=== PATIENT | female | born 1995 | race Two or more races ===

== ENCOUNTER 2019-01-01 08:24 | Emergency (ER) | payer MEDICAID ==
[~2019-01-01] VITALS: Ht 160 cm; Wt 58.0 kg
[~2019-01-01 08:24] MED LIST: CEFD300C37 PO; CHLO25TA4 PO; DOXY25TA18 PO; GING500C PO; OMEP10CA5 PO; ONDA4TAB7 PO; PROM25TA10 PO
[2019-01-01] MEDS ORDERED: RACEPINEPHRINE INH 2.25%, 0.5ML ONE (08:40)
--- NOTE | 2019-01-01 09:08 | NUR ---
PT IS 21 WEEKS WITH HYPEREMESIS. HAS BEEN TAKING DOXYLAMINE-PYRIDOXINE TO GOOD EFFECT. INSURANCE DENIED PAYMENT FOR HER REFILL OF MEDICATION. PT WAS TOLD TO TRY 2 OTC MEDICATIONS TOGETHER THAT HAVE THE SAME EFFECT, BUT PT SAYS ITS NOT WORKING. ACTIVELY VOMITING IN ROOM AT THIS TIME. HAS BEEN VOMITING SINCE MEDICATION CHANGE SUNDAY, UNABLE TO HOLD DOWN FOOD. PT C/O MILD EPIGASTRIC PAIN, AND LOWER ABDOMINAL PAIN FROM VOMITING AND MUSCLE STRAIN. DENIES ANY OTHER CONCERNS. CALL LIGHT IN REACH.
[2019-01-01] MEDS ORDERED: FAMOTIDINE 20 MG/2 ML IVPush ONE (09:30)
[2019-01-01] MEDS ORDERED: METOCLOPRAMIDE 5 MG/ML, 2ML IVPush ONE (09:30)
[2019-01-01] MEDS ORDERED: SODIUM CHLORIDE 0.9% 1,000ML IVBOLUS ONE (09:30)
[2019-01-01] MEDS ORDERED: SODIUM CHLORIDE FLUSH 10ML SYR IVF ONE (09:30)
[2019-01-01] MEDS ORDERED: DIPHENHYDRAMINE 50 MG/ML, 1ML ONE (09:40)
[2019-01-01] MEDS ORDERED: FAMOTIDINE 20 MG/2 ML ONE (09:40)
[2019-01-01] MEDS ORDERED: METOCLOPRAMIDE 5 MG/ML, 2ML ONE (09:40)
[2019-01-01 09:49] VITALS: BP 102/64
[2019-01-01 09:53] LABS: BASOPHILS # (AUTO) 0.02 x10^3/uL (0-0.1); BASOPHILS % (AUTO) 0 % (0-1); EOSINOPHILS # (AUTO) 0.02 x10^3/uL (0-0.4); EOSINOPHILS % (AUTO) 0 % (1-7); LYMPHOCYTES # (AUTO) 1.37 x10^3/uL (1-3.4); LYMPHOCYTES % (AUTO) 13 % (22-44); MD NO; MEAN CORPUSCULAR HEMOGLOBIN 29.6 pg (27.0-34.8); MEAN CORPUSCULAR HGB CONC 32.7 g/dL (32.4-35.8); MEAN CORPUSCULAR VOLUME 90.4 fL (80-100); MEAN PLATELET VOLUME 7.3 fL (7.4-10.4); MONOCYTES # (AUTO) 0.58 x10^3/uL (0.2-0.8); MONOCYTES % (AUTO) 5 % (2-9); NEUTROPHILS # (AUTO) 8.81 x10^3/uL (1.8-6.8); NEUTROPHILS % (AUTO) 82 % (42-75); PLATELET COUNT 495 x10^3/uL (130-400); RED BLOOD COUNT 4.16 x10^6/uL (3.82-5.3); RED CELL DISTRIBUTION WIDTH 14.1 % (9.6-15.2)
[2019-01-01] MEDS ORDERED: DIPHENHYDRAMINE 50 MG/ML, 1ML IVPush ONE (10:00)
[2019-01-01 10:04] LABS: ALBUMIN 3.4 g/dL (3.4-5.0); ANION GAP 7 mmol/L (5-15); CALCIUM 9.4 mg/dL (8.5-10.1); CHLORIDE 107 mmol/L (98-107)
[2019-01-01 10:07] LABS: ALANINE AMINOTRANSFERASE 20 U/L (12-78); ALKALINE PHOSPHATASE 72 U/L (45-117); BILIRUBIN,TOTAL 0.6 mg/dL (0.2-1.0); CREATININE 0.62 mg/dL (0.55-1.02)
[2019-01-01] MEDS ORDERED: POTASSIUM CHLORIDE 20 MEQ PACKET PO ONE (10:30)
== END 2019-01-01 11:33 | disposition home or self-care (01) ==
LOC: ED 10:28
DX: O21.2 Late vomiting of pregnancy (principal); Z3A.21 21 weeks gestation of pregnancy; E87.6 Hypokalemia
CPT/HCPCS: 36415; 80053; 83690; 85025; 93005; 96361; 96374; 96375; 99284; J1200; J2765; J3490; J7030

== ENCOUNTER 2019-05-12 13:46 | Outpatient (CLI) | payer MEDICAID ==
[2019-05-12 14:46] VITALS: BP 109/70
[2019-05-12 14:49] LABS: AMPHETAMINE SCREEN, URINE Negative (Negative); BARBITURATE SCREEN, URINE Negative (Negative); BENZODIAZEPINE SCREEN, URINE Negative (Negative); CANNABINOID SCREEN, URINE Negative (Negative); COCAINE SCREEN, URINE Negative (Negative); METHADONE SCREEN, URINE Negative (Negative); OPIATE SCREEN, URINE Negative (Negative)
[2019-05-12 15:02] LABS: MICROSCOPIC INDICATED
[2019-05-12] MEDS ORDERED: METO10TA82 PO (15:02)
[2019-05-12] MEDS ORDERED: PREN1TAB10 PO (15:30)
== END 2019-05-12 15:47 | disposition home or self-care (01) ==
LOC: LDOP 13:46
PROVIDERS: ATTEND Obstetrics & Gynecology
DX: O36.8130 Decreased fetal movements, third trimester, not applicable or unspecified (principal); Z3A.40 40 weeks gestation of pregnancy
CPT/HCPCS: 59025; 80307; 81001; 84112; 87086; 99211; G0463

== ENCOUNTER 2019-05-14 22:51 | Inpatient (IN) | payer MEDICAID ==
[~2019-05-14] VITALS: Ht 160 cm; Wt 76.4 kg
[~2019-05-14 22:51] MED LIST changes: +METO10TA82 PO; +PREN1TAB10 PO
[2019-05-14] MEDS ORDERED: D5%-LACTATED RINGERS 1,000 ML IV SCH (23:18)
[2019-05-14] MEDS ORDERED: OXYTOCIN 30U/ 0.9% NaCL 500ML 500 ML IV PRN (23:18)
[2019-05-14] MEDS ORDERED: LACTATED RINGERS 1,000 ML IV SCH (23:18)
[2019-05-14] MEDS ORDERED: OXYTOCIN 30U/ 0.9% NaCL 500ML 500 ML IV ONE (23:18)
[2019-05-14] MEDS ORDERED: SODIUM CITRATE/CITRIC ACID 30 ML UDC PO PRN (23:30)
[2019-05-14] MEDS ORDERED: FENTANYL PF 100 MCG/2ML IV PRN (23:30)
[2019-05-14] MEDS ORDERED: ONDANSETRON 2MG/ML, 2ML IVPush PRN (23:30)
[2019-05-14] MEDS ORDERED: TERBUTALINE 1 MG/ML, 1ML SQ PRN (23:30)
[2019-05-14] MEDS ORDERED: TERBUTALINE 1 MG/ML, 1ML IVPush PRN (23:30)
[2019-05-14] MEDS ORDERED: PLEASE ENTER HEIGHT AND WEIGHT MC SCH (23:45)
[2019-05-15 00:06] LABS: BASOPHILS # (AUTO) 0.02 x10^3/uL (0-0.1); BASOPHILS % (AUTO) 0 % (0-1); EOSINOPHILS # (AUTO) 0.14 x10^3/uL (0-0.4); EOSINOPHILS % (AUTO) 1 % (1-7); LYMPHOCYTES # (AUTO) 1.92 x10^3/uL (1-3.4); LYMPHOCYTES % (AUTO) 18 % (22-44); MD NO; MEAN CORPUSCULAR HEMOGLOBIN 29.4 pg (27.0-34.8); MEAN CORPUSCULAR HGB CONC 33.2 g/dL (32.4-35.8); MEAN CORPUSCULAR VOLUME 88.5 fL (80-100); MEAN PLATELET VOLUME 7.4 fL (7.4-10.4); MONOCYTES % (AUTO) 8 % (2-9); NEUTROPHILS # (AUTO) 7.53 x10^3/uL (1.8-6.8); NEUTROPHILS % (AUTO) 72 % (42-75); PLATELET COUNT 314 x10^3/uL (130-400); RED BLOOD COUNT 3.95 x10^6/uL (3.82-5.3); RED CELL DISTRIBUTION WIDTH 15.6 % (9.6-15.2)
[2019-05-15] MEDS ORDERED: FENTANYL PF 100 MCG/2ML ONE ×2 (00:16→01:12)
[2019-05-15] MEDS: FENTANYL PF 100 MCG/2ML IVPush PRN ×2 (00:19→01:14)
[2019-05-15] MEDS ORDERED: FENTANYL/BUPIV./NS/PF 250 ML EPIDCONT SCH ×2 (00:27→02:21)
[2019-05-15] MEDS ORDERED: LACTATED RINGERS 1,000 ML IV SCH ×2 (00:27→02:21)
[2019-05-15] MEDS ORDERED: FENTANYL PF 500 MCG, BUPIVACAINE/PF 0.5%, 30ML 62.5 ML in SODIUM CHLORIDE 0.9% 177.5 ML EPIDCONT SCH (00:30)
[2019-05-15] MEDS ORDERED: EPHEDRINE 50 MG/ML, 1ML IVPush PRN ×2 (00:30→02:30)
[2019-05-15] MEDS ORDERED: LACTATED RINGERS 1,000 ML IVBOLUS PRN ×2 (00:30→02:30)
[2019-05-15] MEDS ORDERED: BUPIVACAINE 0.25% ONE (02:23)
[2019-05-15] MEDS ORDERED: NALOXONE 0.4 MG/ML, 1ML IVPush PRN (02:30)
[2019-05-15] MEDS ORDERED: EPHEDRINE 50 MG/ML, 1ML ONE (03:06)
[2019-05-15] MEDS ORDERED: ONDANSETRON 2MG/ML, 2ML ONE (04:40)
[2019-05-15] MEDS ORDERED: OXYTOCIN 30U/ 0.9% NaCL 500ML 500 ML ONE (07:59)
[2019-05-15] MEDS ORDERED: LIDOCAINE 1%, 20ML ONE (08:01)
[2019-05-15] MEDS ORDERED: MISOPROSTOL 200 MCG TABLET ONE (08:02)
[2019-05-15] MEDS: OXYTOCIN 30U/ 0.9% NaCL 500ML 500 ML IV SCH ×2 (09:36→19:36)
[2019-05-15] MEDS ORDERED: OXYTOCIN 30U/ 0.9% NaCL 500ML 500 ML IV SCH (09:36)
[2019-05-15] MEDS ORDERED: ONDANSETRON 2MG/ML, 2ML IV PRN (10:00)
[2019-05-15] MEDS ORDERED: SIMETHICONE 80 MG CHEW TAB PO PRN (10:00)
[2019-05-15] MEDS ORDERED: MISOPROSTOL 200 MCG TABLET PR PRN (10:00)
[2019-05-15] MEDS ORDERED: ACETAMINOPHEN 325 MG TABLET PO PRN ×2 (10:00)
[2019-05-15] MEDS ORDERED: HYDROcodone/APAP 5/325 TABLET PO PRN ×2 (10:00)
[2019-05-15] MEDS ORDERED: CALCIUM CARBONATE 500 MG TAB.CHEW PO PRN (10:00)
[2019-05-15] MEDS ORDERED: BISACODYL 10 MG SUPP PR PRN (10:00)
[2019-05-15] MEDS ORDERED: IBUPROFEN 600 MG TABLET ONE (11:24)
[2019-05-15] MEDS: IBUPROFEN 600 MG TABLET PO PRN ×2 (11:25→21:22)
[2019-05-15 12:20] VITALS: BP 100/61
[2019-05-15 16:20] VITALS: BP 99/64
[2019-05-15 17:50] LABS: BASOPHILS # (AUTO) 0.02 x10^3/uL (0-0.1); BASOPHILS % (AUTO) 0 % (0-1); EOSINOPHILS # (AUTO) 0.02 x10^3/uL (0-0.4); EOSINOPHILS % (AUTO) 0 % (1-7); LYMPHOCYTES # (AUTO) 1.56 x10^3/uL (1-3.4); LYMPHOCYTES % (AUTO) 10 % (22-44); MD NO; MEAN CORPUSCULAR HGB CONC 33.9 g/dL (32.4-35.8); MEAN CORPUSCULAR VOLUME 88.5 fL (80-100); MEAN PLATELET VOLUME 7.4 fL (7.4-10.4); MONOCYTES # (AUTO) 0.97 x10^3/uL (0.2-0.8); MONOCYTES % (AUTO) 6 % (2-9); NEUTROPHILS # (AUTO) 12.98 x10^3/uL (1.8-6.8); NEUTROPHILS % (AUTO) 84 % (42-75); PLATELET COUNT 268 x10^3/uL (130-400); RED BLOOD COUNT 3.28 x10^6/uL (3.82-5.3); RED CELL DISTRIBUTION WIDTH 15.6 % (9.6-15.2)
[2019-05-15 21:10] VITALS: BP 102/59
[2019-05-15] MEDS: DOCUSATE 100 MG CAPSULE PO PRN (21:23)
[2019-05-16 01:00] VITALS: BP 101/61
[2019-05-16 04:00] VITALS: BP 106/71
[2019-05-16] MEDS: OXYTOCIN 30U/ 0.9% NaCL 500ML 500 ML IV SCH ×2 (05:36→15:36)
[2019-05-16] MEDS: IBUPROFEN 600 MG TABLET PO PRN ×2 (07:58→17:30)
[2019-05-16] MEDS: PRENATAL VIT/IRON/FA 1 EACH TABLET PO SCH (07:58)
[2019-05-16 08:08] VITALS: BP 100/62
[2019-05-16] MEDS ORDERED: DOCU-131 PO (10:06)
[2019-05-16] MEDS ORDERED: IBUP-1222 PO (10:06)
[2019-05-16] MEDS ORDERED: FERR325T23 PO (10:07)
[2019-05-16] MEDS: FERROUS GLUCONATE 324 MG TABLET PO SCH ×2 (11:47→17:30)
[2019-05-16 21:00] VITALS: BP 100/63
[2019-05-17] MEDS: OXYTOCIN 30U/ 0.9% NaCL 500ML 500 ML IV SCH (01:36)
[2019-05-17] MEDS: IBUPROFEN 600 MG TABLET PO PRN ×2 (03:04→09:03)
[2019-05-17 07:18] VITALS: BP 99/69
[2019-05-17] MEDS: PRENATAL VIT/IRON/FA 1 EACH TABLET PO SCH (09:00)
[2019-05-17] MEDS: FERROUS GLUCONATE 324 MG TABLET PO SCH (09:03)
[2019-05-17] MEDS: DOCUSATE 100 MG CAPSULE PO PRN (09:03)
== END 2019-05-17 14:41 | disposition home or self-care (01) | DRG 807 ==
LOC: LDIP 22:51 → 2NW 05-15 11:46
PROVIDERS: ADMIT Obstetrics & Gynecology; ATTEND Obstetrics & Gynecology
PROC: 10E0XZZ Delivery of Products of Conception, External Approach (ICD-10-PCS; principal; 2019-05-15)
PROC: 0HQ9XZZ Repair Perineum Skin, External Approach (ICD-10-PCS; 2019-05-15)
PROC: 3E0R3BZ Introduction of Anesthetic Agent into Spinal Canal, Percutaneous Approach (ICD-10-PCS; 2019-05-15)
PROC: 00HU33Z Insertion of Infusion Device into Spinal Canal, Percutaneous Approach (ICD-10-PCS; 2019-05-15)
DX: O66.0 Obstructed labor due to shoulder dystocia (principal); Z37.0 Single live birth; Z3A.40 40 weeks gestation of pregnancy; O76 Abnormality in fetal heart rate and rhythm complicating labor and delivery; O77.0 Labor and delivery complicated by meconium in amniotic fluid; O70.0 First degree perineal laceration during delivery
CPT/HCPCS: 36415; J7121; S0020; 82803; 85025; 86592; 86850; 86900; 89060; G0378; J2405; J3010; J2590; J7050; J7120; Q0114

== ENCOUNTER 2019-07-02 19:49 | Inpatient (IN) | payer MEDICAID ==
[~2019-07-02] VITALS: Ht 160 cm; Wt 61.5 kg
[~2019-07-02 19:49] MED LIST changes: +DOCU-131 PO; +FERR325T23 PO; +IBUP-1222 PO
--- NOTE | 2019-07-02 20:17 | NUR ---
24 Y/O FEMALE PRESENTS TO THE ER C/O RUQ ABD PAIN X 2 HOURS. SHE REPORTS HAVING GALLSTONES WHILE . DELIVERED BABY 6 WEEKS AGO. PT REPORTS SEVERE PAIN, N/V. FEVER/CHILLS. NOT COOPERATIVE WITH ASSESSMENT. ANSWERING ALL QUESTIONS FOR PT. ALL MONITORING EQUIPMENT APPLIED. VITALS STABLE. DR. DESAI EVALUATING PT
[2019-07-02] MEDS ORDERED: HYDROmorphone 1 MG/ML, 1ML INJ ONE ×2 (20:21→21:30)
[2019-07-02] MEDS ORDERED: ONDANSETRON 2MG/ML, 2ML ONE ×2 (20:21→21:03)
[2019-07-02] MEDS: HYDROmorphone 2 MG/ML, 1ML IVPush PRN ×2 (20:25→21:38)
[2019-07-02] MEDS ORDERED: SODIUM CHLORIDE FLUSH 10ML SYR IVF ONE (20:30)
[2019-07-02] MEDS ORDERED: ONDANSETRON 2MG/ML, 2ML IVPush ONE ×2 (20:30→21:30)
[2019-07-02 20:33] LABS: BASOPHILS # (AUTO) 0.05 x10^3/uL (0-0.1); BASOPHILS % (AUTO) 0 % (0-1); EOSINOPHILS # (AUTO) 0.02 x10^3/uL (0-0.4); EOSINOPHILS % (AUTO) 0 % (1-7); LYMPHOCYTES # (AUTO) 1.05 x10^3/uL (1-3.4); LYMPHOCYTES % (AUTO) 8 % (22-44); MD NO; MEAN CORPUSCULAR HEMOGLOBIN 28.4 pg (27.0-34.8); MEAN CORPUSCULAR HGB CONC 32.5 g/dL (32.4-35.8); MEAN CORPUSCULAR VOLUME 87.3 fL (80-100); MEAN PLATELET VOLUME 7.5 fL (7.4-10.4); MONOCYTES # (AUTO) 0.66 x10^3/uL (0.2-0.8); MONOCYTES % (AUTO) 5 % (2-9); NEUTROPHILS % (AUTO) 86 % (42-75); PLATELET COUNT 366 x10^3/uL (130-400); RED CELL DISTRIBUTION WIDTH 13.9 % (9.6-15.2)
--- NOTE | 2019-07-02 20:35 | NUR ---
IV ESTABLISHED, LABS DRAWN AND GIVEN TO ORDER BUILDER LOADER. PT MEDICATED PER EMAR. 5 RIGHTS ADDRESSED. PT MORE COOPERATIVE AT THIS TIME. PROVIDED WITH WARM BLANKETS. AT BEDSIDE. AWAITING LAB WORK AND US AT THIS TIME. CALL LIGHT WITHIN REACH.
[2019-07-02 20:40] LABS: ALANINE AMINOTRANSFERASE 30 U/L (12-78); ANION GAP 8 mmol/L (5-15); CALCIUM 9.4 mg/dL (8.5-10.1); CHLORIDE 106 mmol/L (98-107); CREATININE 0.82 mg/dL (0.55-1.02)
[2019-07-02 20:45] LABS: ALKALINE PHOSPHATASE 92 U/L (45-117); BILIRUBIN,TOTAL 0.5 mg/dL (0.2-1.0); TOTAL PROTEIN 7.9 g/dL (6.4-8.2)
--- NOTE | 2019-07-02 21:08 | NUR ---
PT STILL C/O NAUSEA. PT MEDICATED WITH SECOND DOSE OF ZOFRAN IV. REPORTS PAIN IS "MUCH BETTER". PT APPEARS TO BE MORE COMFORTABLE, RESTING QUIETLY ON GURNEY. REMAINS AT BEDSIDE. PT TO BE ADMITTED, AWAITING ROOM ASSIGNMENT.
--- NOTE | 2019-07-02 21:13 | NUR ---
PT AWARE OF THE NEED FOR URINE SAMPLE. PT STATES SHE DOES NOT NEED TO URINATE AT THIS TIME. WILL CONTINUE TO REMIND PT
--- NOTE | 2019-07-02 21:38 | NUR ---
PT MEDICATED AGAIN FOR PAIN. STILL VOMITING. WILL MAKE ERP AWARE. ALL VITALS STABLE. PT DENIES ANY OTHER NEEDS AT THIS TIME. REMAINS AT BEDSIDE.
[2019-07-02] MEDS ORDERED: PROMETHAZINE 25 MG/ML, 1ML ONE (21:41)
[2019-07-02] MEDS ORDERED: HYDROmorphone 2 MG/ML, 1ML IVPush PRN (22:00)
[2019-07-02] MEDS ORDERED: PROMETHAZINE 25 MG/ML, 1ML IM ONE (22:00)
--- NOTE | 2019-07-02 22:36 | NUR ---
PT SLEEPING, AT BEDSIDE. ALL VITALS STABLE. DR. DESAI UPDATED PT AND ON PLAN OF CARE.
[2019-07-02] MEDS ORDERED: DEXTROSE 50%, 50ML SYRINGE IVPush PRN (23:00)
[2019-07-02] MEDS ORDERED: DEXTROSE 4 GM TAB.CHEW PO PRN (23:00)
[2019-07-02] MEDS ORDERED: BISACODYL 10 MG SUPP PR PRN (23:00)
[2019-07-02] MEDS ORDERED: ACETAMINOPHEN 325 MG TABLET PO PRN (23:00)
[2019-07-02] MEDS ORDERED: ONDANSETRON 2MG/ML, 2ML IVPush PRN (23:00)
[2019-07-02] MEDS ORDERED: POLYETHYLENE GLYCOL 17 GM PACKET PO PRN (23:00)
[2019-07-02] MEDS ORDERED: LACTATED RINGERS 1,000 ML IV SCH (23:00)
[2019-07-02] MEDS ORDERED: HYDROmorphone 1 MG/ML, 1ML INJ IV PRN (23:00)
[2019-07-02] MEDS ORDERED: GLUCAGON 1 MG IM PRN (23:00)
--- NOTE | 2019-07-02 23:40 | NUR ---
PT CONTINUES TO SLEEP, DENIES ANY NEEDS AT THIS TIME. ALL VITALS REMAIN STABLE. AWAITING ROOM ASSIGNMENT ON THE FLOOR AT THIS TIME. WILL CONTINUE TO MONITOR, CALL LIGHT WITHIN REACH.
[2019-07-02 23:44] LABS: CHOL/HDL RATIO 4.8; LDL/HDL RATIO 2.6 (0.5-3.0)
--- NOTE | 2019-07-03 00:14 | NUR ---
REPORT TO CRISTIANO HERNANDEZ
[2019-07-03 00:45] VITALS: BP 108/71
[2019-07-03] MEDS: HEPARIN 5,000 UNITS/ML, 1ML SQ SCH ×4 (01:12→23:52)
[2019-07-03 01:51] LABS: CULTURE INDICATED? YES; MICROSCOPIC INDICATED
[2019-07-03 02:33] VITALS: BP 101/72
[2019-07-03 05:46] LABS: ALBUMIN 3.5 g/dL (3.4-5.0); ANION GAP 7 mmol/L (5-15); CALCIUM 8.9 mg/dL (8.5-10.1); CHLORIDE 108 mmol/L (98-107)
[2019-07-03 05:51] LABS: ALANINE AMINOTRANSFERASE 39 U/L (12-78); ALKALINE PHOSPHATASE 90 U/L (45-117); BILIRUBIN,TOTAL 0.6 mg/dL (0.2-1.0); CREATININE 0.69 mg/dL (0.55-1.02); TOTAL PROTEIN 6.8 g/dL (6.4-8.2)
[2019-07-03 05:54] LABS: BASOPHILS # (AUTO) 0.03 x10^3/uL (0-0.1); BASOPHILS % (AUTO) 0 % (0-1); EOSINOPHILS % (AUTO) 0 % (1-7); LYMPHOCYTES # (AUTO) 1.39 x10^3/uL (1-3.4); LYMPHOCYTES % (AUTO) 19 % (22-44); MD NO; MEAN CORPUSCULAR HEMOGLOBIN 28.6 pg (27.0-34.8); MEAN CORPUSCULAR HGB CONC 32.5 g/dL (32.4-35.8); MEAN CORPUSCULAR VOLUME 87.9 fL (80-100); MONOCYTES # (AUTO) 0.32 x10^3/uL (0.2-0.8); MONOCYTES % (AUTO) 4 % (2-9); NEUTROPHILS # (AUTO) 5.76 x10^3/uL (1.8-6.8); NEUTROPHILS % (AUTO) 77 % (42-75); PLATELET COUNT 335 x10^3/uL (130-400); RED CELL DISTRIBUTION WIDTH 14.1 % (9.6-15.2)
[2019-07-03] MEDS ORDERED: INSULIN LISPRO 100 UNITS/ML, PEN SQ-INSULIN SCH (07:00)
[2019-07-03] MEDS ORDERED: HYDROmorphone 1 MG/ML, 1ML INJ IV PRN (07:00)
[2019-07-03 07:33] VITALS: BP 94/69
[2019-07-03] MEDS: SODIUM CHLORIDE FLUSH 10ML SYR IVF SCH ×2 (09:00→21:00)
[2019-07-03] MEDS: SENNA/DOCUSATE TABLET PO SCH (09:45)
[2019-07-03] MEDS: FAMOTIDINE 20 MG/2 ML IVPush SCH ×2 (09:45→21:29)
[2019-07-03] MEDS: D5%-0.45NACL+KCL 20MEQ 1,000 ML IV SCH ×2 (09:46→21:29)
[2019-07-03 13:54] VITALS: BP 125/79
[2019-07-03 21:06] VITALS: BP 102/70
[2019-07-04 01:51] VITALS: BP 92/65
[2019-07-04 05:38] LABS: ALBUMIN 3.2 g/dL (3.4-5.0); ANION GAP 4 mmol/L (5-15); CALCIUM 8.7 mg/dL (8.5-10.1); CHLORIDE 110 mmol/L (98-107); CREATININE 0.77 mg/dL (0.55-1.02)
[2019-07-04 05:46] LABS: BASOPHILS # (AUTO) 0.03 x10^3/uL (0-0.1); BASOPHILS % (AUTO) 0 % (0-1); EOSINOPHILS # (AUTO) 0.07 x10^3/uL (0-0.4); EOSINOPHILS % (AUTO) 1 % (1-7); LYMPHOCYTES # (AUTO) 2.18 x10^3/uL (1-3.4); LYMPHOCYTES % (AUTO) 37 % (22-44); MD NO; MEAN CORPUSCULAR HEMOGLOBIN 28.5 pg (27.0-34.8); MEAN CORPUSCULAR HGB CONC 32.3 g/dL (32.4-35.8); MEAN CORPUSCULAR VOLUME 88.2 fL (80-100); MEAN PLATELET VOLUME 7.6 fL (7.4-10.4); MONOCYTES # (AUTO) 0.41 x10^3/uL (0.2-0.8); MONOCYTES % (AUTO) 7 % (2-9); NEUTROPHILS # (AUTO) 3.21 x10^3/uL (1.8-6.8); NEUTROPHILS % (AUTO) 55 % (42-75); PLATELET COUNT 323 x10^3/uL (130-400); RED BLOOD COUNT 4.09 x10^6/uL (3.82-5.3); RED CELL DISTRIBUTION WIDTH 13.7 % (9.6-15.2)
[2019-07-04 07:15] VITALS: BP 86/54
[2019-07-04] MEDS: HEPARIN 5,000 UNITS/ML, 1ML SQ SCH (08:00)
[2019-07-04] MEDS: SODIUM CHLORIDE FLUSH 10ML SYR IVF SCH (09:00)
[2019-07-04] MEDS: SENNA/DOCUSATE TABLET PO SCH (09:00)
[2019-07-04] MEDS: D5%-0.45NACL+KCL 20MEQ 1,000 ML IV SCH (10:03)
[2019-07-04] MEDS: FAMOTIDINE 20 MG/2 ML IVPush SCH (10:03)
== END 2019-07-04 12:26 | disposition home or self-care (01) | DRG 444 ==
LOC: ED 21:23 → EDIP 22:51 → 3N 07-03 00:32
PROVIDERS: ADMIT Internal Medicine; ATTEND Family Medicine
DX: K80.20 Calculus of gallbladder without cholecystitis without obstruction (principal); K85.10 Biliary acute pancreatitis without necrosis or infection
CPT/HCPCS: 36415; 96372; 96374; 96375; 96376; 99285; J3490; 74181; 76700; 80053; 80061; 80069; 81001; 83690; 83735; 84703; 85025; 87086; G0378; J1170; J1644; J2405; J2550; J3480; J7120

== ENCOUNTER 2019-07-24 03:19 | Emergency (ER) | payer MEDICAID ==
[~2019-07-24] VITALS: Ht 160 cm; Wt 59.6 kg
[2019-07-24] MEDS ORDERED: ONDANSETRON 2MG/ML, 2ML ONE (03:29)
[2019-07-24] MEDS ORDERED: ONDANSETRON 2MG/ML, 2ML IVPush ONE (03:30)
[2019-07-24] MEDS ORDERED: MORPHINE SULFATE 4 MG/ML, 1ML ONE (03:30)
[2019-07-24] MEDS ORDERED: SODIUM CHLORIDE FLUSH 10ML SYR IVF ONE (03:30)
[2019-07-24] MEDS ORDERED: MORPHINE SULFATE 4 MG/ML, 1ML IVPush PRN (03:30)
[2019-07-24 03:49] LABS: BASOPHILS # (AUTO) 0.02 x10^3/uL (0-0.1); BASOPHILS % (AUTO) 0 % (0-1); EOSINOPHILS # (AUTO) 0.07 x10^3/uL (0-0.4); EOSINOPHILS % (AUTO) 1 % (1-7); LYMPHOCYTES # (AUTO) 3.31 x10^3/uL (1-3.4); LYMPHOCYTES % (AUTO) 48 % (22-44); MD NO; MEAN CORPUSCULAR HEMOGLOBIN 28.5 pg (27.0-34.8); MEAN CORPUSCULAR HGB CONC 32.5 g/dL (32.4-35.8); MEAN CORPUSCULAR VOLUME 87.7 fL (80-100); MEAN PLATELET VOLUME 7.6 fL (7.4-10.4); MONOCYTES # (AUTO) 0.38 x10^3/uL (0.2-0.8); MONOCYTES % (AUTO) 6 % (2-9); NEUTROPHILS % (AUTO) 45 % (42-75); PLATELET COUNT 402 x10^3/uL (130-400); RED BLOOD COUNT 4.74 x10^6/uL (3.82-5.3); RED CELL DISTRIBUTION WIDTH 14.2 % (9.6-15.2)
[2019-07-24] MEDS ORDERED: LORazepam 2 MG/ML, 1ML ONE (03:56)
[2019-07-24 03:57] LABS: ALANINE AMINOTRANSFERASE 49 U/L (12-78); ANION GAP 6 mmol/L (5-15); CALCIUM 9.2 mg/dL (8.5-10.1); CHLORIDE 107 mmol/L (98-107); CREATININE 0.86 mg/dL (0.55-1.02)
[2019-07-24] MEDS ORDERED: LORazepam 2 MG/ML, 1ML IVPush ONE (04:00)
[2019-07-24 04:02] LABS: ALKALINE PHOSPHATASE 89 U/L (45-117); BILIRUBIN,TOTAL 0.3 mg/dL (0.2-1.0); TOTAL PROTEIN 7.7 g/dL (6.4-8.2)
[2019-07-24 04:25] VITALS: BP 94/60
[2019-07-24 04:41] LABS: MICROSCOPIC NOT IND
== END 2019-07-24 05:08 | disposition home or self-care (01) ==
LOC: ED 03:47
DX: K80.20 Calculus of gallbladder without cholecystitis without obstruction (principal); R10.11 Right upper quadrant pain; R11.0 Nausea
CPT/HCPCS: 36415; 76700; 80053; 80307; 81003; 83690; 84703; 85025; 96374; 96375; 99284; J2060; J2270; J2405

== ENCOUNTER 2019-07-24 18:17 | Emergency (ER) | payer MEDICAID ==
[~2019-07-24] VITALS: Ht 160 cm; Wt 59.2 kg
[2019-07-24] MEDS ORDERED: ONDANSETRON 2MG/ML, 2ML ONE (18:59)
[2019-07-24] MEDS ORDERED: KETOROLAC 30 MG/1 ML ONE (18:59)
[2019-07-24] MEDS ORDERED: KETOROLAC 30 MG/1 ML IVPush ONE (19:00)
[2019-07-24] MEDS ORDERED: ONDANSETRON 2MG/ML, 2ML IVPush ONE (19:00)
--- NOTE | 2019-07-24 19:18 | NUR ---
PER , OK TO GIVE MEDS IM. MEDS GIVEN.
[2019-07-24 19:27] LABS: BASOPHILS # (AUTO) 0.03 x10^3/uL (0-0.1); BASOPHILS % (AUTO) 0 % (0-1); EOSINOPHILS # (AUTO) 0.05 x10^3/uL (0-0.4); EOSINOPHILS % (AUTO) 1 % (1-7); LYMPHOCYTES # (AUTO) 1.38 x10^3/uL (1-3.4); LYMPHOCYTES % (AUTO) 16 % (22-44); MD NO; MEAN CORPUSCULAR HEMOGLOBIN 28.5 pg (27.0-34.8); MEAN CORPUSCULAR HGB CONC 32.5 g/dL (32.4-35.8); MEAN CORPUSCULAR VOLUME 87.7 fL (80-100); MEAN PLATELET VOLUME 7.7 fL (7.4-10.4); MONOCYTES # (AUTO) 0.77 x10^3/uL (0.2-0.8); MONOCYTES % (AUTO) 9 % (2-9); NEUTROPHILS # (AUTO) 6.63 x10^3/uL (1.8-6.8); NEUTROPHILS % (AUTO) 75 % (42-75); PLATELET COUNT 416 x10^3/uL (130-400); RED BLOOD COUNT 4.56 x10^6/uL (3.82-5.3)
[2019-07-24 19:31] LABS: ALANINE AMINOTRANSFERASE 68 U/L (12-78); ALBUMIN 3.9 g/dL (3.4-5.0); ANION GAP 8 mmol/L (5-15); CALCIUM 9.2 mg/dL (8.5-10.1); CHLORIDE 107 mmol/L (98-107)
[2019-07-24 19:34] LABS: ALKALINE PHOSPHATASE 102 U/L (45-117); BILIRUBIN,TOTAL 0.9 mg/dL (0.2-1.0); CREATININE 0.86 mg/dL (0.55-1.02); TOTAL PROTEIN 7.6 g/dL (6.4-8.2)
--- NOTE | 2019-07-24 19:39 | NUR ---
ALL RESULTS ARE BACK AT THIS TIME. CHART UP FOR RECHECK.
[2019-07-24 20:16] VITALS: BP 101/67
== END 2019-07-24 20:26 | disposition home or self-care (01) ==
LOC: ED 20:00
DX: K80.20 Calculus of gallbladder without cholecystitis without obstruction (principal)
CPT/HCPCS: 36415; 80053; 83690; 85025; 96374; 96375; 99284; J1885; J2405

== ENCOUNTER 2019-07-25 02:57 | Inpatient (IN) | payer MEDICAID ==
[~2019-07-25] VITALS: Ht 161.3 cm; Wt 61.2 kg
--- NOTE | 2019-07-25 03:11 | NUR ---
pt up to rr with steady gait
[2019-07-25] MEDS ORDERED: ONDANSETRON 2MG/ML, 2ML ONE ×2 (03:14→08:21)
[2019-07-25] MEDS ORDERED: MORPHINE SULFATE 4 MG/ML, 1ML ONE (03:15)
[2019-07-25] MEDS ORDERED: ONDANSETRON 2MG/ML, 2ML IVPush ONE (03:30)
[2019-07-25] MEDS ORDERED: MORPHINE SULFATE 4 MG/ML, 1ML IVPush PRN (03:30)
[2019-07-25] MEDS ORDERED: SODIUM CHLORIDE FLUSH 10ML SYR IVF ONE (03:30)
--- NOTE | 2019-07-25 03:30 | NUR ---
pt resting on gurney, monitors applied, siderails up x2, call light within reach. iv site started, labs drawn, pt medicated per mar. awaiting lab results and ultrasound
[2019-07-25 03:32] LABS: BASOPHILS # (AUTO) 0.02 x10^3/uL (0-0.1); BASOPHILS % (AUTO) 0 % (0-1); EOSINOPHILS # (AUTO) 0.03 x10^3/uL (0-0.4); EOSINOPHILS % (AUTO) 0 % (1-7); LYMPHOCYTES # (AUTO) 1.23 x10^3/uL (1-3.4); LYMPHOCYTES % (AUTO) 14 % (22-44); MD NO; MEAN CORPUSCULAR HEMOGLOBIN 28.5 pg (27.0-34.8); MEAN CORPUSCULAR HGB CONC 32.7 g/dL (32.4-35.8); MEAN CORPUSCULAR VOLUME 86.9 fL (80-100); MEAN PLATELET VOLUME 7.7 fL (7.4-10.4); MONOCYTES % (AUTO) 6 % (2-9); NEUTROPHILS % (AUTO) 80 % (42-75); PLATELET COUNT 440 x10^3/uL (130-400); RED BLOOD COUNT 4.56 x10^6/uL (3.82-5.3); RED CELL DISTRIBUTION WIDTH 13.9 % (9.6-15.2)
[2019-07-25 03:41] LABS: ALANINE AMINOTRANSFERASE 161 U/L (12-78); ALBUMIN 3.9 g/dL (3.4-5.0); ANION GAP 8 mmol/L (5-15); CALCIUM 9.5 mg/dL (8.5-10.1); CHLORIDE 107 mmol/L (98-107)
[2019-07-25 03:43] LABS: ALKALINE PHOSPHATASE 111 U/L (45-117); BILIRUBIN,TOTAL 2.2 mg/dL (0.2-1.0); TOTAL PROTEIN 7.6 g/dL (6.4-8.2)
--- NOTE | 2019-07-25 03:50 | NUR ---
pt to ultrasound
--- NOTE | 2019-07-25 04:21 | NUR ---
erp at pt's bedside for recheck
[2019-07-25] MEDS ORDERED: SODIUM CHLORIDE 0.9% 1,000ML IVBOLUS ONE (05:00)
--- NOTE | 2019-07-25 05:02 | NUR ---
pt resting calmly, denies needs at this time, monitors in place, call light within reach. awaiting room for admit
[2019-07-25 05:30] VITALS: BP 106/69
[2019-07-25] MEDS: ONDANSETRON 2MG/ML, 2ML IVPush PRN ×2 (08:27→20:25)
[2019-07-25] MEDS ORDERED: TEMAZEPAM 15 MG CAPSULE PO PRN (08:30)
[2019-07-25] MEDS ORDERED: ACETAMINOPHEN 325 MG TABLET PO PRN (08:30)
[2019-07-25 08:43] VITALS: BP 119/77
[2019-07-25] MEDS: PANTOPRAZOLE 40 MG IV IVPush SCH (09:14)
[2019-07-25] MEDS: SODIUM CHLORIDE 0.9% 1,000 ML IV SCH ×2 (09:18→21:22)
[2019-07-25 11:20] LABS: MICROSCOPIC INDICATED
[2019-07-25 11:40] VITALS: BP 104/70
[2019-07-25] MEDS: morphine SULFATE 10 MG/ML, 1ML IVPush PRN ×2 (11:41→16:05)
[2019-07-25 13:02] VITALS: BP 115/64
[2019-07-25] MEDS: PIPERACILLIN/TAZO/PMX 3.375GM 50 ML IV SCH ×2 (16:00→21:22)
[2019-07-25] MEDS: METOCLOPRAMIDE 5 MG/ML, 2ML IVPush PRN (16:03)
[2019-07-25 19:20] VITALS: BP 109/72
[2019-07-26 00:41] VITALS: BP 95/61
[2019-07-26] MEDS: PIPERACILLIN/TAZO/PMX 3.375GM 50 ML IV SCH ×4 (03:44→23:03)
[2019-07-26] MEDS: METOCLOPRAMIDE 5 MG/ML, 2ML IVPush PRN (03:50)
[2019-07-26 05:11] LABS: BASOPHILS # (AUTO) 0.03 x10^3/uL (0-0.1); BASOPHILS % (AUTO) 0 % (0-1); EOSINOPHILS # (AUTO) 0.03 x10^3/uL (0-0.4); EOSINOPHILS % (AUTO) 0 % (1-7); LYMPHOCYTES # (AUTO) 1.96 x10^3/uL (1-3.4); LYMPHOCYTES % (AUTO) 28 % (22-44); MD NO; MEAN CORPUSCULAR HEMOGLOBIN 28.3 pg (27.0-34.8); MEAN CORPUSCULAR HGB CONC 32.1 g/dL (32.4-35.8); MEAN CORPUSCULAR VOLUME 88.1 fL (80-100); MEAN PLATELET VOLUME 7.8 fL (7.4-10.4); MONOCYTES # (AUTO) 0.37 x10^3/uL (0.2-0.8); MONOCYTES % (AUTO) 5 % (2-9); NEUTROPHILS # (AUTO) 4.59 x10^3/uL (1.8-6.8); NEUTROPHILS % (AUTO) 66 % (42-75); PLATELET COUNT 350 x10^3/uL (130-400); RED BLOOD COUNT 3.88 x10^6/uL (3.82-5.3); RED CELL DISTRIBUTION WIDTH 14.1 % (9.6-15.2)
[2019-07-26 05:12] LABS: INTERNATIONAL NORMALIZED RATIO 1.05 (0.93-1.1); PROTHROMBIN TIME 11.1 Seconds (9.6-11.5)
[2019-07-26 05:17] LABS: ALANINE AMINOTRANSFERASE 113 U/L (12-78); ALBUMIN 3.2 g/dL (3.4-5.0); ANION GAP 9 mmol/L (5-15); CALCIUM 8.7 mg/dL (8.5-10.1); CHLORIDE 112 mmol/L (98-107); CREATININE 0.86 mg/dL (0.55-1.02)
[2019-07-26 05:23] LABS: ALKALINE PHOSPHATASE 91 U/L (45-117); BILIRUBIN,TOTAL 1.1 mg/dL (0.2-1.0); TOTAL PROTEIN 6.3 g/dL (6.4-8.2)
[2019-07-26] MEDS: SODIUM CHLORIDE 0.9% 1,000 ML IV SCH (05:24)
[2019-07-26 07:11] VITALS: BP 98/62
[2019-07-26] MEDS ORDERED: D5%-LACTATED RINGERS 1,000 ML IV SCH (11:00)
[2019-07-26] MEDS: PANTOPRAZOLE 40 MG IV IVPush SCH (11:07)
[2019-07-26] MEDS ORDERED: BUPIVACAINE/PF-EPI 0.5% 1:200K ONE (12:12)
[2019-07-26] MEDS ORDERED: CHLORHEXIDINE 15 ML UDC ONE (12:13)
[2019-07-26] MEDS ORDERED: FENTANYL PF 250 MCG/5ML ONE (13:40)
[2019-07-26] MEDS ORDERED: MIDAZOLAM 1 MG/ML, 2ML ONE (13:40)
[2019-07-26] MEDS ORDERED: ONDANSETRON 2MG/ML, 2ML IVPush PRN (14:00)
[2019-07-26] MEDS ORDERED: ACETAMINOPHEN 325 MG TABLET PO PRN (14:00)
[2019-07-26] MEDS ORDERED: HYDROmorphone 1 MG/ML, 1ML INJ IVPush PRN (14:00)
[2019-07-26] MEDS ORDERED: LORazepam 2 MG/ML, 1ML IVPush PRN (14:00)
[2019-07-26] MEDS ORDERED: PROMETHAZINE 25 MG/ML, 1ML IVPush PRN (14:00)
[2019-07-26] MEDS ORDERED: DIAZEPAM 5 MG/ML, 2ML IVPush PRN (14:00)
[2019-07-26] MEDS ORDERED: FENTANYL PF 100 MCG/2ML IV PRN (14:00)
[2019-07-26] MEDS ORDERED: OXYcodone 5 MG/5 ML ORAL.SOL UDC PO PRN (14:00)
[2019-07-26] MEDS ORDERED: MEPERIDINE/PF 25MG/0.5ML IVPush PRN (14:00)
[2019-07-26] MEDS ORDERED: PROMETHAZINE 25 MG SUPP PR PRN (14:00)
[2019-07-26] MEDS ORDERED: ROCURONIUM 10MG/ML,5ML ONE (14:39)
[2019-07-26] MEDS ORDERED: NEOSTIGMINE 1 MG/ML, 10ML ONE (14:39)
[2019-07-26] MEDS ORDERED: GLYCOPYRROLATE 0.2MG/1ML, 5ML ONE (14:39)
[2019-07-26] MEDS ORDERED: DEXAMETHASONE 4 MG/ML, 1ML ONE (14:39)
[2019-07-26] MEDS ORDERED: ONDANSETRON 2MG/ML, 2ML ONE (14:39)
[2019-07-26] MEDS ORDERED: SUCCINYLCHOLINE 20 MG/ML, 10ML ONE (14:39)
[2019-07-26] MEDS ORDERED: SUGAMMADEX 200 MG/2 ML IVPush ONE (14:39)
[2019-07-26] MEDS ORDERED: LIDOCAINE-MPF 2% ,5ML ONE (14:39)
[2019-07-26] MEDS ORDERED: CEFAZOLIN 1,000 MG ONE (14:39)
[2019-07-26] MEDS ORDERED: PROPOFOL 10 MG/ML, 20ML ONE (14:39)
[2019-07-26] MEDS ORDERED: OMNIPAQUE 350 MG/ML, 50 ML BOTTLE ONE (14:40)
[2019-07-26] MEDS ORDERED: MEPERIDINE/PF 25MG/ML,1ML ONE (14:58)
[2019-07-26] MEDS ORDERED: OXYcodone 5 MG/5 ML ORAL.SOL UDC ONE (14:58)
[2019-07-26 16:05] VITALS: BP 111/76
[2019-07-26 18:33] VITALS: BP 99/62
[2019-07-26] MEDS: morphine SULFATE 10 MG/ML, 1ML IVPush PRN ×2 (20:20→23:02)
[2019-07-27 00:01] VITALS: BP 103/66
[2019-07-27] MEDS: METOCLOPRAMIDE 5 MG/ML, 2ML IVPush PRN (03:00)
[2019-07-27 04:53] LABS: BASOPHILS # (AUTO) 0.03 x10^3/uL (0-0.1); BASOPHILS % (AUTO) 0 % (0-1); EOSINOPHILS % (AUTO) 0 % (1-7); LYMPHOCYTES % (AUTO) 14 % (22-44); MD NO; MEAN CORPUSCULAR HEMOGLOBIN 28.2 pg (27.0-34.8); MEAN CORPUSCULAR HGB CONC 32.4 g/dL (32.4-35.8); MEAN CORPUSCULAR VOLUME 87.1 fL (80-100); MEAN PLATELET VOLUME 7.8 fL (7.4-10.4); MONOCYTES # (AUTO) 0.39 x10^3/uL (0.2-0.8); MONOCYTES % (AUTO) 5 % (2-9); NEUTROPHILS # (AUTO) 6.57 x10^3/uL (1.8-6.8); NEUTROPHILS % (AUTO) 81 % (42-75); PLATELET COUNT 381 x10^3/uL (130-400); RED BLOOD COUNT 4.04 x10^6/uL (3.82-5.3); RED CELL DISTRIBUTION WIDTH 14.1 % (9.6-15.2)
[2019-07-27 05:02] LABS: ALANINE AMINOTRANSFERASE 92 U/L (12-78); ALBUMIN 3.2 g/dL (3.4-5.0); ANION GAP 8 mmol/L (5-15); CALCIUM 8.9 mg/dL (8.5-10.1); CHLORIDE 105 mmol/L (98-107); CREATININE 0.75 mg/dL (0.55-1.02)
[2019-07-27 05:04] LABS: ALKALINE PHOSPHATASE 93 U/L (45-117); BILIRUBIN,TOTAL 0.9 mg/dL (0.2-1.0); TOTAL PROTEIN 6.7 g/dL (6.4-8.2)
[2019-07-27] MEDS: PIPERACILLIN/TAZO/PMX 3.375GM 50 ML IV SCH ×4 (05:23→22:42)
[2019-07-27 06:42] VITALS: BP 105/67
[2019-07-27] MEDS: morphine SULFATE 10 MG/ML, 1ML IVPush PRN (07:55)
[2019-07-27] MEDS: ONDANSETRON 2MG/ML, 2ML IVPush PRN (07:55)
[2019-07-27] MEDS: PANTOPRAZOLE 40 MG IV IVPush SCH ×3 (07:55→20:08)
[2019-07-27] MEDS ORDERED: PROCHLORPERAZINE 5 MG/ML, 2ML IV PRN (10:30)
[2019-07-27] MEDS: HYDROcodone/APAP 5/325 TABLET PO PRN ×2 (12:09→20:08)
[2019-07-27] MEDS: LACTATED RINGERS 1,000 ML IV SCH (12:09)
[2019-07-27 13:55] VITALS: BP 115/76
[2019-07-27] MEDS ORDERED: POLYETHYLENE GLYCOL 17 GM PACKET PO PRN (14:30)
[2019-07-27] MEDS ORDERED: SENNA/DOCUSATE TABLET PO PRN (14:30)
[2019-07-27] MEDS ORDERED: BISACODYL 10 MG SUPP PR PRN (14:30)
[2019-07-27 18:57] VITALS: BP 111/64
[2019-07-28 00:34] VITALS: BP 109/74
[2019-07-28 05:25] LABS: BASOPHILS # (AUTO) 0.04 x10^3/uL (0-0.1); BASOPHILS % (AUTO) 1 % (0-1); EOSINOPHILS # (AUTO) 0.05 x10^3/uL (0-0.4); EOSINOPHILS % (AUTO) 1 % (1-7); LYMPHOCYTES # (AUTO) 2.68 x10^3/uL (1-3.4); LYMPHOCYTES % (AUTO) 40 % (22-44); MD NO; MEAN CORPUSCULAR HEMOGLOBIN 28.3 pg (27.0-34.8); MEAN CORPUSCULAR HGB CONC 32.1 g/dL (32.4-35.8); MEAN CORPUSCULAR VOLUME 88.2 fL (80-100); MEAN PLATELET VOLUME 7.6 fL (7.4-10.4); MONOCYTES # (AUTO) 0.46 x10^3/uL (0.2-0.8); MONOCYTES % (AUTO) 7 % (2-9); NEUTROPHILS # (AUTO) 3.53 x10^3/uL (1.8-6.8); NEUTROPHILS % (AUTO) 52 % (42-75); PLATELET COUNT 343 x10^3/uL (130-400); RED BLOOD COUNT 3.86 x10^6/uL (3.82-5.3); RED CELL DISTRIBUTION WIDTH 13.9 % (9.6-15.2)
[2019-07-28] MEDS: PIPERACILLIN/TAZO/PMX 3.375GM 50 ML IV SCH ×4 (05:27→21:22)
[2019-07-28 05:42] LABS: ALBUMIN 2.9 g/dL (3.4-5.0); ANION GAP 9 mmol/L (5-15); CALCIUM 8.6 mg/dL (8.5-10.1); CHLORIDE 107 mmol/L (98-107)
[2019-07-28 05:48] LABS: ALANINE AMINOTRANSFERASE 64 U/L (12-78); ALKALINE PHOSPHATASE 70 U/L (45-117); BILIRUBIN,TOTAL 0.7 mg/dL (0.2-1.0); CREATININE 0.75 mg/dL (0.55-1.02)
[2019-07-28 06:34] VITALS: BP 124/79
[2019-07-28] MEDS: PANTOPRAZOLE 40 MG IV IVPush SCH (07:38)
[2019-07-28] MEDS: LACTATED RINGERS 1,000 ML IV SCH ×2 (07:38→21:23)
[2019-07-28] MEDS ORDERED: CHLORHEXIDINE 15 ML UDC ONE (08:23)
[2019-07-28] MEDS ORDERED: MIDAZOLAM 1 MG/ML, 2ML ONE (08:23)
[2019-07-28] MEDS ORDERED: FENTANYL PF 250 MCG/5ML ONE (08:23)
[2019-07-28] MEDS ORDERED: ROCURONIUM 10MG/ML,5ML ONE (08:24)
[2019-07-28] MEDS ORDERED: GLYCOPYRROLATE 0.2MG/1ML, 5ML ONE (08:24)
[2019-07-28] MEDS ORDERED: NEOSTIGMINE 1 MG/ML, 10ML ONE (08:24)
[2019-07-28] MEDS ORDERED: PROPOFOL 10 MG/ML, 20ML ONE (08:24)
[2019-07-28] MEDS ORDERED: DEXAMETHASONE 4 MG/ML, 1ML ONE (08:24)
[2019-07-28] MEDS ORDERED: ONDANSETRON 2MG/ML, 2ML ONE (08:24)
[2019-07-28] MEDS ORDERED: MEPERIDINE/PF 25MG/0.5ML IVPush PRN (08:30)
[2019-07-28] MEDS ORDERED: PROMETHAZINE 25 MG/ML, 1ML IVPush PRN (08:30)
[2019-07-28] MEDS ORDERED: HYDROmorphone 1 MG/ML, 1ML INJ IVPush PRN (08:30)
[2019-07-28] MEDS ORDERED: FENTANYL PF 100 MCG/2ML IV PRN (08:30)
[2019-07-28] MEDS ORDERED: ACETAMINOPHEN 325 MG TABLET PO PRN (08:30)
[2019-07-28] MEDS ORDERED: OXYcodone 5 MG/5 ML ORAL.SOL UDC PO PRN (08:30)
[2019-07-28] MEDS ORDERED: HALOPERIDOL 5 MG/ML IV PRN (08:30)
[2019-07-28] MEDS ORDERED: OMNIPAQUE 350 MG/ML, 50 ML BOTTLE ONE (09:16)
[2019-07-28] MEDS ORDERED: POTASSIUM CHLORIDE 40 MEQ in SODIUM CHLORIDE 0.9% 500 ML IV ONE (11:00)
[2019-07-28 12:06] VITALS: BP 146/90
[2019-07-28] MEDS ORDERED: HYDROmorphone 1 MG/ML, 1ML INJ IV PRN (13:00)
[2019-07-28] MEDS: HYDROcodone/APAP 5/325 TABLET PO PRN (16:25)
[2019-07-28 19:27] VITALS: BP 103/70
[2019-07-28] MEDS: PANTOPRAZOLE 40MG TABLET PO SCH (21:21)
[2019-07-28] MEDS ORDERED: PROC5TAB40 PO (22:44)
[2019-07-28] MEDS ORDERED: HYDR-3237 PO (22:44)
[2019-07-28] MEDS ORDERED: AMOX1TAB64 PO (22:44)
[2019-07-29 01:51] VITALS: BP 127/76
[2019-07-29] MEDS: PIPERACILLIN/TAZO/PMX 3.375GM 50 ML IV SCH ×2 (04:21→08:43)
[2019-07-29] MEDS: PANTOPRAZOLE 40MG TABLET PO SCH (05:23)
[2019-07-29 05:26] LABS: BASOPHILS # (AUTO) 0.03 x10^3/uL (0-0.1); BASOPHILS % (AUTO) 0 % (0-1); EOSINOPHILS # (AUTO) 0.03 x10^3/uL (0-0.4); EOSINOPHILS % (AUTO) 0 % (1-7); LYMPHOCYTES # (AUTO) 2.22 x10^3/uL (1-3.4); LYMPHOCYTES % (AUTO) 26 % (22-44); MD NO; MEAN CORPUSCULAR HEMOGLOBIN 28.6 pg (27.0-34.8); MEAN CORPUSCULAR HGB CONC 32.6 g/dL (32.4-35.8); MEAN CORPUSCULAR VOLUME 87.7 fL (80-100); MEAN PLATELET VOLUME 7.7 fL (7.4-10.4); MONOCYTES # (AUTO) 0.67 x10^3/uL (0.2-0.8); MONOCYTES % (AUTO) 8 % (2-9); NEUTROPHILS # (AUTO) 5.63 x10^3/uL (1.8-6.8); NEUTROPHILS % (AUTO) 66 % (42-75); PLATELET COUNT 363 x10^3/uL (130-400); RED BLOOD COUNT 3.96 x10^6/uL (3.82-5.3); RED CELL DISTRIBUTION WIDTH 13.8 % (9.6-15.2)
[2019-07-29 05:34] LABS: CHLORIDE 106 mmol/L (98-107)
[2019-07-29 05:49] LABS: ALANINE AMINOTRANSFERASE 91 U/L (12-78); ALKALINE PHOSPHATASE 76 U/L (45-117); ANION GAP 8 mmol/L (5-15); BILIRUBIN,TOTAL 0.9 mg/dL (0.2-1.0); CALCIUM 8.6 mg/dL (8.5-10.1); CREATININE 0.65 mg/dL (0.55-1.02); TOTAL PROTEIN 6.4 g/dL (6.4-8.2)
[2019-07-29] MEDS: LACTATED RINGERS 1,000 ML IV SCH (07:28)
[2019-07-29 08:36] VITALS: BP 109/72
[2019-07-29] MEDS: HYDROcodone/APAP 5/325 TABLET PO PRN (08:48)
== END 2019-07-29 13:18 | disposition home or self-care (01) | DRG 417 ==
LOC: ED 04:42 → EDIP 04:52 → 4NE 05:35 → 3N 19:04
PROVIDERS: ADMIT Family Medicine; ATTEND Internal Medicine
PROC: 0FT44ZZ Resection of Gallbladder, Percutaneous Endoscopic Approach (ICD-10-PCS; principal; 2019-07-26 13:25)
PROC: 0F798ZZ Dilation of Common Bile Duct, Via Natural or Artificial Opening Endoscopic (ICD-10-PCS; 2019-07-28)
PROC: BF131ZZ Fluoroscopy of Gallbladder and Bile Ducts using Low Osmolar Contrast (ICD-10-PCS; 2019-07-28)
DX: K80.66 Calculus of gallbladder and bile duct with acute and chronic cholecystitis without obstruction (principal); K85.10 Biliary acute pancreatitis without necrosis or infection; K86.1 Other chronic pancreatitis; E87.6 Hypokalemia; R74.8 Abnormal levels of other serum enzymes; K83.8 Other specified diseases of biliary tract; Z90.49 Acquired absence of other specified parts of digestive tract
CPT/HCPCS: 36415; 74300; 74328; 96374; 96375; 99285; J3490; J7121; 71046; 74181; 76700; 80053; 81001; 83690; 83735; 84100; 85025; 85610; 87086; 88304; G0378; J0690; J1100; J2175; J2250; J2405; J2543; J2704; J2710; J3010; J3480; Q9967; C1769; C9113; J0330; J2270; J2765; J7030; J7040; J7120